=== PATIENT | male | born 1965 | race Caucasian/White ===

== ENCOUNTER 2022-01-05 17:41 | Emergency (ER) | payer SELFPAY ==
[2022-01-05] MEDS ORDERED: Ketorolac Tromethamine 30 MG/ML VIAL ONE ×2 (18:10→18:53)
[2022-01-05] MEDS ORDERED: Acetaminophen 500 MG TAB ONE (19:14)
[2022-01-05] MEDS ORDERED: Gabapentin 300 MG CAP PO SCH (22:45)
== END 2022-01-05 23:18 | disposition home or self-care (01) ==
LOC: ERS 17:41
DX: M51.36 Other intervertebral disc degeneration, lumbar region (principal); F17.210 Nicotine dependence, cigarettes, uncomplicated
CPT/HCPCS: 72131; 94760; 96372; J1885